=== PATIENT | male | born 1940 | race Caucasian/White ===

== ENCOUNTER → 2019-04-25 | Outpatient (CLI) | payer MEDICARE ==
[~2019-04-25] MED LIST: BARIUM SUSPENSION 2.1% (VANILLA SILQ) 450 ML PO ONE; CATHETER FLUSH 10 ML SYR IV PRN; HOLD METFORMIN - RECEIVED CONTRAST 20 ML VIAL IV SCH; IOHEXOL 350 MG/ML 100 ML (OMNIPAQUE 350) VIAL IV ONE; NS 100 ML (IVPB) BAG IV ONE
[2019-04-25] MEDS: CATHETER FLUSH 10 ML SYR IV PRN ×2 (11:53→12:48)
--- NOTE | 2019-04-25 13:16 | Diagnostic Imaging Report ---
PROCEDURE: CT abdomen and pelvis with contrast. TECHNIQUE: Multiple contiguous axial images were obtained through the abdomen and pelvis after administration of intravenous contrast. Auto Exposure Controls were utilized during the CT exam to meet ALARA standards for radiation dose reduction. INDICATION: Prostatic carcinoma. COMPARISON: Correlation is made with prior CT from 01/06/2012. FINDINGS: The lung bases are clear. Tiny low-density left lobe of liver appears to be stable. An 11 mm low-density right lobe of liver is seen posteriorly. This is not definitely seen on prior exam but may represent a small cyst. No other liver lesions are seen. Gallbladder is unremarkable. No biliary ductal dilatation is seen. Pancreas and spleen are unremarkable. No adrenal mass is detected. Kidneys are unremarkable. Aorta is non-aneurysmal. No central, retroperitoneal or mesenteric lymphadenopathy is seen. Bowel loops are normal caliber. There is no obstruction. No free fluid or fluid collection is seen. The bladder is unremarkable. Prostate is surgically absent. No definite pelvic lymphadenopathy is seen. IMPRESSION: 1. Status post prostatectomy. No abdominal or pelvic lymphadenopathy or evidence of metastatic disease is seen. 2. Small low densities within the liver, too small to characterize but likely cysts. Dictated by: Dictated on workstation # [id number]
--- NOTE | 2019-04-25 15:25 | Diagnostic Imaging Report ---
INDICATION: Prostate cancer. TECHNIQUE: Patient was administered 26.7 mCi of technetium-99m MDP intravenously, and whole body imaging was performed after 3-hour delay. COMPARISON: Correlation is made with prior whole body bone scan from 01/06/2012. FINDINGS: Normal uptake of activity by the axial and appendicular skeleton is noted. There is uptake by the kidneys with excretion into the urinary bladder. No suspicious foci are seen to suggest osseous metastatic disease. IMPRESSION: No scintigraphic evidence of osseous metastatic disease. Dictated by: Dictated on workstation # [id number]
== END ==
LOC: CARD 11:34
PROVIDERS: ATTEND Urology
DX: K76.89 Other specified diseases of liver (principal); Z90.79 Acquired absence of other genital organ(s); C61 Malignant neoplasm of prostate
CPT/HCPCS: 74177; 78306

== ENCOUNTER → 2021-07-12 | Outpatient (CLI) | payer MEDICARE ==
[~2021-07-12] MED LIST changes: -BARIUM SUSPENSION 2.1% (VANILLA SILQ) 450 ML PO ONE; -HOLD METFORMIN - RECEIVED CONTRAST 20 ML VIAL IV SCH; -IOHEXOL 350 MG/ML 100 ML (OMNIPAQUE 350) VIAL IV ONE; -NS 100 ML (IVPB) BAG IV ONE
--- NOTE | 2021-07-12 14:41 | Diagnostic Imaging Report ---
PROCEDURE: CT abdomen and pelvis without contrast. TECHNIQUE: Multiple contiguous axial images were obtained through the abdomen and pelvis without the use of intravenous contrast. Auto Exposure Controls were utilized during the CT exam to meet ALARA standards for radiation dose reduction. INDICATION: Prostate cancer. Follow-up. COMPARISON: 04/25/2019. FINDINGS: The heart is unremarkable. Partially calcified granulomas are seen in the included lung bases. The liver, spleen, pancreas, adrenal glands, and kidneys have a normal noncontrast CT appearance. There is no pathologically enlarged mesenteric or retroperitoneal adenopathy. The bowel loops are nondilated. The appendix is visualized in the right lower quadrant and has a normal appearance. There is no free fluid or free air. No acute osseous abnormalities. Chronic height loss is again seen in the T12 vertebral body. There is calcified aortic and iliac atherosclerotic plaque without evidence of aneurysm. The urinary bladder is decompressed. There is concentric bladder wall thickening. Postsurgical changes of prostatectomy are noted. Small fat-containing left inguinal hernia is seen. There is no free air, loculated collection or adenopathy in the pelvis. IMPRESSION: 1. Stable postsurgical changes of prostatectomy. No pathologically enlarged lymphadenopathy in the abdomen or pelvis. No evidence of solid organ metastatic disease. 2. Bladder wall thickening, which may be due to inadequate distention versus cystitis. Recommend correlation with UA. Dictated by: Dictated on workstation # [id number]
--- NOTE | 2021-07-12 15:49 | Diagnostic Imaging Report ---
INDICATION: History of prostate cancer COMPARISON: None Tc-99m MDP 25.5 mCi IV FINDINGS: The skeleton was imaged in anterior and posterior views with the moving gamma camera. There is normal distribution of tracer throughout the skeleton. No abnormal focal area of increased or decreased tracer accumulation is identified. IMPRESSION: Normal whole body bone scan. Dictated by: Dictated on workstation # [id number]
== END ==
LOC: CARD 12:00
PROVIDERS: ATTEND Urology
DX: C61 Malignant neoplasm of prostate (principal)
CPT/HCPCS: 74176; 78306; A9503

== ENCOUNTER → 2022-07-29 | Outpatient (RCR) | payer MEDICARE ==
[~2022-07-29] MED LIST changes: -CATHETER FLUSH 10 ML SYR IV PRN; +LEUPROLIDE 22.5 MG SYRINGE (ELIGARD) SQ SCH
[2022-07-29 09:39] LABS: BILIRUBIN,URINE NEGATIVE (NEGATIVE); CLARITY,URINE CLEAR; COLOR,URINE YELLOW; GLUCOSE, URINE (UA) NEGATIVE (NEGATIVE); KETONES,URINE NEGATIVE (NEGATIVE); LEUKOCYTE ESTERASE ,URINE NEGATIVE (NEGATIVE); NITRITE,URINE NEGATIVE (NEGATIVE); PROTEIN,URINE NEGATIVE (NEGATIVE)
[2022-07-29 09:47] LABS: BACTERIA,URINE NEGATIVE /HPF
== END | disposition home or self-care (01) ==
LOC: ONC 08:27
PROVIDERS: ATTEND Internal Medicine Hematology & Oncology
DX: C61 Malignant neoplasm of prostate (principal)
CPT/HCPCS: 81000; 84153; 84403; 96372; G0463; 36415; 99204

== ENCOUNTER 2022-10-24 08:39 | Outpatient (RCR) | payer MEDICARE | END 2022-10-26 | disposition home or self-care (01) | LOC: ONC 08:39 | PROVIDERS: ATTEND Internal Medicine Hematology & Oncology | DX: Z51.11 Encounter for antineoplastic chemotherapy (principal); C61 Malignant neoplasm of prostate | CPT/HCPCS: 96402 ==

== ENCOUNTER 2023-01-13 08:36 | Outpatient (RCR) | payer MEDICARE | END 2023-01-26 | disposition home or self-care (01) | LOC: ONC 08:36 | PROVIDERS: ATTEND Internal Medicine Hematology & Oncology | DX: C61 Malignant neoplasm of prostate (principal) | CPT/HCPCS: 36415; 84153; 96402 ==

== ENCOUNTER 2023-04-07 08:19 | Outpatient (RCR) | payer MEDICARE | END 2023-04-28 | disposition home or self-care (01) | LOC: ONC 08:19 | PROVIDERS: ATTEND Internal Medicine Hematology & Oncology | DX: Z51.11 Encounter for antineoplastic chemotherapy (principal); C61 Malignant neoplasm of prostate | CPT/HCPCS: 96402 ==